=== PATIENT | female | born 1990 | race Hispanic/Latino ===

== ENCOUNTER 2019-02-06 11:02 | Outpatient (CLI) | payer OTHER ==
--- NOTE | 2019-02-06 11:23 | RAD ---
Exam:3 views right foot HISTORY: Pain COMPARISON: None FINDINGS: Lisfranc alignment is maintained. Preserved joint spaces. No fracture, cortical irregularit y or periosteal reaction. IMPRESSION: Unremarkable right foot 3 views
== END 2019-02-06 11:03 | disposition home or self-care (01) ==
LOC: BICRAD 11:02
PROVIDERS: ATTEND Podiatrist
DX: M79.671 Pain in right foot (principal)